=== PATIENT | male | born 1945 | race Caucasian/White ===

== ENCOUNTER 2021-07-08 19:51 | Emergency (ER) | payer MEDICARE ==
[2021-07-08] MEDS ORDERED: Sodium Chloride 0.9% 10 ML Syringe FLUSH PRN (19:54)
[2021-07-08] MEDS ORDERED: Furosemide 40 MG/4 ML VIAL IVPUSH ONE (19:59)
[2021-07-08] MEDS ORDERED: Etomidate 2 MG/ML 20 ML SDV IVPUSH ONE (20:59)
[2021-07-08] MEDS ORDERED: Succinylcholine 200 MG/10 ML MDV IV ONE (20:59)
[2021-07-08] MEDS ORDERED: Rocuronium 50 MG/5 ML Vial ONE (21:00)
[2021-07-08] MEDS ORDERED: Midazolam 1 MG/ML 5 ML SDV ONE (21:00)
[2021-07-08] MEDS ORDERED: propofoL 100 ML IV SCH (21:00)
[2021-07-08] MEDS ORDERED: Norepinephrine 4 MG in Dextrose 5% in Water 246 ML IV SCH ×2 (21:45)
== END 2021-07-08 23:40 ==
LOC: JD.ED 19:51
DX: J96.01 Acute respiratory failure with hypoxia (principal); I50.9 Heart failure, unspecified; I95.89 Other hypotension; Z20.822 Contact with and (suspected) exposure to COVID-19
CPT/HCPCS: 31500; 36415; 36600; 51702; 71045; 80053; 81001; 82803; 83880; 84484; 85025; 93005; 96365; 96366; 96375; 99291; 99292; J0330; J1940; J2250; J2704; J3490; J7060; U0002